=== PATIENT | female | born 1970 | race Caucasian/White ===

== ENCOUNTER → 2020-06-11 | Outpatient (CLI) | payer BC ==
[~2020-06-11] MED LIST: DIFLUCAN100 MG PO; OMNICEF 300 MG300 MG PO; PROBIOTIC & AC1 EACH PO
== END ==
LOC: LAB 17:41
DX: M54.2 Cervicalgia (principal); M25.531 Pain in right wrist; M47.812 Spondylosis without myelopathy or radiculopathy, cervical region; M19.031 Primary osteoarthritis, right wrist; M19.041 Primary osteoarthritis, right hand
CPT/HCPCS: 72050; 73110; 73130

== ENCOUNTER 2020-09-28 14:34 | Emergency (ER) | payer BC ==
[2020-09-28 15:36] LABS: HEMOGLOBIN 13.9 gm/dl (12.3-15.3); RED BLOOD COUNT 4.43 M/UL (4.00-5.10); WHITE BLOOD COUNT 13.5 K/UL (4.5-11.0)
[2020-09-28 16:06] LABS: BUN/CREATININE RATIO 20 (0-10)
[2020-09-28] MEDS ORDERED: OMNICEF 300 MG300 MG PO (17:55)
[2020-09-28] MEDS ORDERED: PROBIOTIC & AC1 EACH PO (17:55)
[2020-09-28] MEDS ORDERED: DIFLUCAN100 MG PO (18:15)
== END 2020-09-28 18:30 | disposition home or self-care (01) ==
LOC: ER1 14:34
PROVIDERS: Physician Assistant
DX: N39.0 Urinary tract infection, site not specified (principal); K59.00 Constipation, unspecified; F17.210 Nicotine dependence, cigarettes, uncomplicated; E78.5 Hyperlipidemia, unspecified; I10 Essential (primary) hypertension; Z88.0 Allergy status to penicillin
CPT/HCPCS: 71045; 80053; 81001; 82550; 82553; 83605; 83874; 84484; 85025; 85610; 87077; 87086; 87186; 96374; 99284; J0696; Q9967